=== PATIENT | female | born 1985 | race Caucasian/White ===

== ENCOUNTER 2018-06-12 20:21 | Emergency (ER) | payer SELFPAY ==
--- NOTE | 2018-06-12 20:59 | EDPHY ---
H & P Stated Complaint: r ear feels full " causing balance issues vertigo sx Source: Patient - Personal History LMP (Females 10-55): 1-7 Days Ago Current Tetanus/Diphtheria Vaccine: Yes Current Tetanus Diphtheria and Acellular Pertussis (TDAP): Yes - Medical/Surgical History Hx Asthma: No Hx Chronic Respiratory Disease: No Hx Diabetes: No Hx Cardiac Disease: No Hx Renal Disease: No Hx Cirrhosis: No Hx Alcoholism: No Hx HIV/AIDS: No Hx Splenectomy or Spleen Trauma: No - Social History Smoking Status: Current some day smoker Time Seen by Provider: 06/12/18 20:59 HPI/ROS: HPI CHIEF COMPLAINT: [ ] HISTORY OF PRESENT ILLNESS: [Need 4: Location, Duration, Severity, Quality, Context, Timing Modifying Factors, Associated S&S] Past Medical History: Past Surgical History: Social History: Family History: ROS REVIEW OF SYSTEMS: 10 Systems were reviewed and negative with the exception of the elements mentioned in the history of present illness. Exam Constitutional triage nursing summary reviewed, vital signs reviewed, awake/ alert. Eyes normal conjunctivae and sclera, EOMI, PERRLA. HENT normal inspection, atraumatic, moist mucus membranes, no epistaxis, neck supple/ no meningismus, no raccoon eyes. Respiratory clear to auscultation bilaterally, normal breath sounds, no respiratory distress, no wheezing. Cardiovascular rate normal, regular rhythm, no murmur, no edema, distal pulses normal. Gastrointestinal soft, non-tender, no rebound, no guarding, normal bowel sounds, no distension, no pulsatile mass. Genitourinary no CVA tenderness. Musculoskeletal no midline vertebral tenderness, full range of motion, no calf swelling, no tenderness of extremities, no meningismus, good pulses, neurovascularly intact. Skin pink, warm, & dry, no rash, skin atraumatic. Neurologic awake, alert and oriented x 3, AAOx3, moves all 4 extremities equally, motor intact, sensory intact, CN II-XII intact, normal cerebellar, normal vision, normal speech. Psychiatric normal mood/affect. Heme/Lymph/Immune no lymphadenopathy. Differential Diagnosis: Medical Decision Making: Re-evaluation: (Jeremie Pradhan) Constitutional: Initial Vital Signs Temperature (C) 36.8 C 06/12/18 20:34 Heart Rate 87 06/12/18 20:34 Respiratory Rate 18 06/12/18 20:34 Blood Pressure 117/76 06/12/18 20:34 O2 Sat (%) 96 06/12/18 20:34 O2 Delivery Mode Room Air Allergies/Adverse Reactions: No Known Allergies Allergy (Unverified 06/12/18 20:33) Home Medications: Medication Instructions Recorded NK [No Known Home Meds] 06/12/18 - Data Points Laboratory Results: Laboratory Results 06/12/18 21:54 06/12/18 21:54 06/12/18 06/12/18 21:54 21:54 WBC 11.86 10^3/uL H 10^3/uL (3.80-9.50) RBC 5.37 10^6/uL H 10^6/uL (4.18-5.33) Hgb 14.7 g/dL g/dL (12.6-16.3) Hct 43.9 % % (38.0-47.0) MCV 81.8 fL fL (81.5-99.8) MCH 27.4 pg L pg (27.9-34.1) MCHC 33.5 g/dL g/dL (32.4-36.7) RDW 12.9 % % (11.5-15.2) Plt Count 414 10^3/uL H 10^3/uL (150-400) MPV 8.8 fL fL (8.7-11.7) Neut % (Auto) 60.3 % % (39.3-74.2) Lymph % (Auto) 24.5 % % (15.0-45.0) [place] % (Auto) 9.5 % % (4.5-13.0) Eos % (Auto) 4.5 % % (0.6-7.6) Baso % (Auto) 0.9 % % (0.3-1.7) Nucleat RBC Rel Count 0.0 % % (0.0-0.2) Absolute Neuts (auto) 7.15 10^3/uL H 10^3/uL (1.70-6.50) Absolute Lymphs (auto) 2.90 10^3/uL 10^3/uL (1.00-3.00) Absolute Monos (auto) 1.13 10^3/uL H 10^3/uL (0.30-0.80) Absolute Eos (auto) 0.53 10^3/uL H 10^3/uL (0.03-0.40) Absolute Basos (auto) 0.11 10^3/uL H 10^3/uL (0.02-0.10) Absolute Nucleated RBC 0.00 10^3/uL 10^3/uL (0-0.01) Immature Gran % 0.3 % % (0.0-1.1) Immature Gran # 0.04 10^3/uL 10^3/uL (0.00-0.10) Sodium 142 mEq/L mEq/L (135-145) Potassium 4.3 mEq/L mEq/L (3.3-5.0) Chloride 105 mEq/L mEq/L (97-110) Carbon Dioxide 30 mEq/l mEq/l (22-31) Anion Gap 7 mEq/L L mEq/L (8-16) BUN 13 mg/dL mg/dL (7-23) Creatinine 0.8 mg/dL mg/dL (0.6-1.0) Estimated GFR > 60 Glucose 85 mg/dL mg/dL (70-100) Calcium 9.6 mg/dL mg/dL (8.5-10.4) Medications Given: Discontinued Medications Meclizine HCl (Meclizine Hcl) 25 mg PO EDNOW ONE Stop: 06/12/18 21:48 Last Admin: 06/12/18 21:55 Dose: 25 mg Departure - Departure Referrals: NONE *PRIMARY CARE P,. [Primary Care Provider] - As per Instructions Eleazar Perez MD [Medical Doctor] - As per Instructions
[2018-06-12] MEDS ORDERED: MECLIZINE HCL 25 MG TAB PO ONE (21:47)
[2018-06-12 22:08] LABS: PLATELET COUNT 414 10^3/uL (150-400)
--- NOTE | 2018-06-12 22:34 | EDPHY ---
H & P Time Seen by Provider: 06/12/18 20:59 HPI/ROS: CHIEF COMPLAINT: Dizziness and right ear fullness HISTORY OF PRESENT ILLNESS: The patient is a 32-year-old female here with chronic bilateral ear"fullness". Recently moved here from [place] where she using an Ear Nose Throat doctor who had diagnosed her with eustachian tube dysfunction. She did moved to [place] in [facility] and ENT once who recommended having an MRI done to further evaluate her ear fullness. She never completed this in lost her insurance. Over the last few days she developed worsening right ear fullness and developed vertigo. Her vertigo is alleviated by lying still and worse when she moves her head or moves quickly. She has any vision change, headache, double vision, trouble with coordination, chest pain, shortness of breath REVIEW OF SYSTEMS: Constitutional: No fever, no chills. Eyes: No discharge. ENT: No sore throat. Cardiovascular: No chest pain, no palpitations. Respiratory: No cough, no shortness of breath. Gastrointestinal: No abdominal pain, no vomiting. Genitourinary: No hematuria. Musculoskeletal: No back pain. Skin: No rashes. Neurological: No headache. Smoking Status: Current some day smoker Physical Exam: General Appearance: Alert and no distress. Eyes: Pupils equal and round no injection. Respiratory: Chest is nontender, lungs are clear to auscultation. Cardiac: regular rate and rhythm. Gastrointestinal: Abdomen is soft and nontender, no masses, bowel sounds normal. Musculoskeletal: Neck is supple and nontender. Extremities have full range of motion and are nontender. Skin: No rashes or lesions. Neuro: Cranial nerves grossly intact. Normal [id number] testing. No nystagmus. Ambulatory without difficulty. Normal heel to hooper testing Constitutional: Initial Vital Signs Temperature (C) 36.8 C 06/12/18 20:34 Heart Rate 87 06/12/18 20:34 Respiratory Rate 18 06/12/18 20:34 Blood Pressure 117/76 06/12/18 20:34 O2 Sat (%) 96 06/12/18 20:34 O2 Delivery Mode Room Air Allergies/Adverse Reactions: No Known Allergies Allergy (Unverified 06/12/18 20:33) Home Medications: Medication Instructions Recorded Meclizine HCl [Meclizine HCl 25 mg 25 mg PO BID #30 tab 06/12/18 (RX,OTC)] Medical Decision Making ED Course/Re-evaluation: Patient here with chronic ear fullness now with vertigo. She has no neurologic changes on her exam and her history is most suggestive of peripheral vertigo caused by middle ear pathology. She did feel improved after being given p.o. Meclizine in the ER. EKG and blood work revealed no acute abnormalities. She was referred to primary care and Ear Nose and Throat for further evaluation. - Data Points Laboratory Results: Laboratory Results 06/12/18 21:54 06/12/18 21:54 06/12/18 06/12/18 21:54 21:54 WBC 11.86 10^3/uL H 10^3/uL (3.80-9.50) RBC 5.37 10^6/uL H 10^6/uL (4.18-5.33) Hgb 14.7 g/dL g/dL (12.6-16.3) Hct 43.9 % % (38.0-47.0) MCV 81.8 fL fL (81.5-99.8) MCH 27.4 pg L pg (27.9-34.1) MCHC 33.5 g/dL g/dL (32.4-36.7) RDW 12.9 % % (11.5-15.2) Plt Count 414 10^3/uL H 10^3/uL (150-400) MPV 8.8 fL fL (8.7-11.7) Neut % (Auto) 60.3 % % (39.3-74.2) Lymph % (Auto) 24.5 % % (15.0-45.0) [place] % (Auto) 9.5 % % (4.5-13.0) Eos % (Auto) 4.5 % % (0.6-7.6) Baso % (Auto) 0.9 % % (0.3-1.7) Nucleat RBC Rel Count 0.0 % % (0.0-0.2) Absolute Neuts (auto) 7.15 10^3/uL H 10^3/uL (1.70-6.50) Absolute Lymphs (auto) 2.90 10^3/uL 10^3/uL (1.00-3.00) Absolute Monos (auto) 1.13 10^3/uL H 10^3/uL (0.30-0.80) Absolute Eos (auto) 0.53 10^3/uL H 10^3/uL (0.03-0.40) Absolute Basos (auto) 0.11 10^3/uL H 10^3/uL (0.02-0.10) Absolute Nucleated RBC 0.00 10^3/uL 10^3/uL (0-0.01) Immature Gran % 0.3 % % (0.0-1.1) Immature Gran # 0.04 10^3/uL 10^3/uL (0.00-0.10) Sodium 142 mEq/L mEq/L (135-145) Potassium 4.3 mEq/L mEq/L (3.3-5.0) Chloride 105 mEq/L mEq/L (97-110) Carbon Dioxide 30 mEq/l mEq/l (22-31) Anion Gap 7 mEq/L L mEq/L (8-16) BUN 13 mg/dL mg/dL (7-23) Creatinine 0.8 mg/dL mg/dL (0.6-1.0) Estimated GFR > 60 Glucose 85 mg/dL mg/dL (70-100) Calcium 9.6 mg/dL mg/dL (8.5-10.4) Medications Given: Discontinued Medications Meclizine HCl (Meclizine Hcl) 25 mg PO EDNOW ONE Stop: 06/12/18 21:48 Last Admin: 06/12/18 21:55 Dose: 25 mg Departure - Departure Disposition: Home, Routine, Self-Care Clinical Impression: Peripheral vertigo involving right ear Condition: Good Instructions: Vertigo (DC) Additional Instructions: Follow-up with both ENT and the primary care physician both of which I am referring you to this evening. Return to the ER for any worsening or worrisome symptoms. He may take meclizine 25 mg of to 3 times a day as needed for dizziness. Referrals: Eleazar Perez MD [Medical Doctor] - As per Instructions NONE *PRIMARY CARE P,. [Primary Care Provider] - As per Instructions Roosevelt Vivas MD [Medical Doctor] - As per Instructions Prescriptions: Meclizine HCl [Meclizine HCl 25 mg (RX,OTC)] 25 mg PO BID #30 tab
[2018-06-12 22:58] VITALS: BP 132/68
--- NOTE | 2018-06-12 23:27 | CPEKG ---
Test Reason : OPEN Blood Pressure : / mmHG Vent. Rate : 065 BPM Atrial Rate : 064 BPM P-R Int : 125 ms QRS Dur : 092 ms QT Int : 422 ms P-R-T Axes : 056 077 051 degrees QTc Int : 439 ms Sinus rhythm Confirmed by Sandi Hamlin ([id number]) on 06/12/2018 11:27:38 PM Referred By: Confirmed By:Sandi Hamlin
== END 2018-06-12 22:45 | disposition home or self-care (01) ==
DX: H81.391 Other peripheral vertigo, right ear (principal)